=== PATIENT | female | born 1970 | race Two or more races ===

== ENCOUNTER 2024-10-21 21:47 | Emergency (ER) | payer MEDICAID, OTHER ==
[~2024-10-21] VITALS: Ht 162.6 cm; Wt 81.1 kg
[2024-10-21 22:36] VITALS: BP 130/79; PULSE 78; RESP 18; TEMP 98.2; O2SAT 96
[2024-10-21] MEDS ORDERED: CYCL-837 PO (23:19)
[2024-10-21] MEDS ORDERED: ACET500T58 PO (23:19)
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
[2024-10-21] MEDS: ACETAMINOPHEN 325 MG TAB PO ONE (23:21)
--- NOTE | 2024-10-21 23:38 | DVH ---
EXAM: XY LUMBAR SPINE 3 VIEW HISTORY: lumbar back pain COMPARISON: None TECHNIQUE: 2 views of the lumbosacral spine demonstrate lordotic curvature at 50.4 degrees there is a tiny levoc urvature involving the lumbar spine intervertebral disc spaces are well preserved vertebral body heig hts are well preserved. IMPRESSION: 1. Very tiny levocurvature involving the lumbosacral spine.
--- NOTE | 2024-10-21 23:39 | DVH ---
EXAM: CT CERVICAL WITHOUT CONTRAST INDICATION: neck pain EXAM DATE: 10/21/2024 11:00 PM COMPARISON: None TECHNIQUE: Multiple axial CT images of the cervical spine were obtained using bone algorithm. Axial a nd coronal reformatting was done. Bone and soft tissue windows were reviewed. Radiation Dose Information: CT Dose: CTDI volume is 23 mGy. Dose-length product is 580 mGy*cm FINDINGS: The cervical alignment is intact. No acute cervical spine fracture is identified. The vertebral body heights are intact. No suspicious osseous lesions are identified. Mild degenerative changes throughout the cervical spine. There is no prevertebral soft tissue swelling. IMPRESSION: 1. No evidence of acute cervical spine fracture or traumatic malalignment. 2. Mild degenerative changes throughout the cervical spine. 3. All CT scans at this medical facility are performed using dose modulation techniques as appropriat e to a performed exam including the following: Automated exposure control was utilized; adjustment of the MA and/or KV according to patient size; and use of iterative reconstruction technique.
--- NOTE | 2024-10-21 23:41 | DVH ---
CT HEAD WITHOUT CONTRAST INDICATION: headache COMPARISON: None TECHNIQUE: CT of the head without intravenous contrast. RADIATION DOSE: CTDIvol: 59 mGy, DLP: 1037 mGy*cm FINDINGS: There is no evidence of acute intracranial hemorrhage, extra-axial collection, mass effect, midline s hift, herniation or hydrocephalus. The ventricles, sulci and cisterns are age appropriate. The woo -white differentiation is intact. The visualized paranasal sinuses and mastoid air cells are clear. The surrounding soft tissues and osseous structures are unremarkable. IMPRESSION: 1. No evidence of acute intracranial hemorrhage, mass effect or hydrocephalus.
== END 2024-10-21 23:59 | disposition home or self-care (01) ==
LOC: ER 21:47
DX: S39.012A Strain of muscle, fascia and tendon of lower back, initial encounter (principal); S16.1XXA Strain of muscle, fascia and tendon at neck level, initial encounter; R51.9 Headache, unspecified; Z90.49 Acquired absence of other specified parts of digestive tract; V89.2XXA Person injured in unspecified motor-vehicle accident, traffic, initial encounter; Y93.I9 Activity, other involving external motion; Y92.488 Other paved roadways as the place of occurrence of the external cause; Y99.8 Other external cause status
CPT/HCPCS: 70450; 72100; 72125